=== PATIENT | male | born 1960 | race African-American/Black ===

== ENCOUNTER 2017-03-26 11:48 | Inpatient (IN) | payer SELFPAY ==
[~2017-03-26] VITALS: Ht 180.3 cm; Wt 104.3 kg
[~2017-03-26 11:48] MED LIST: ENOXAPARIN 30MG/0.3ML SYR SUBCUT SCH
[2017-03-26] MEDS ORDERED: ATEN-42 PO (11:57)
[2017-03-26] MEDS ORDERED: METF500T4 PO (11:57)
[2017-03-26] MEDS ORDERED: LISI2.5T47 PO (11:57)
[2017-03-26 13:24] LABS: PROTHROMBIN TIME 10.7 sec (9.4-11.6)
[2017-03-26 13:26] LABS: BASOPHILS % 0.8 % (0.0-2.0); EOSINOPHILS % 1.1 % (0.0-5.0); HEMATOCRIT. 34.7 % (42.0-52.0); HEMOGLOBIN. 11.2 g/dL (14.0-18.0); MEAN CORPUSCULAR HEMOGLOBIN 26.9 pg (28.0-32.0); MEAN CORPUSCULAR VOLUME 83.6 fL (80.0-94.0); MEAN PLATELET VOLUME 7.6 fl (7.4-10.4); NEUTROPHILS % 63.1 % (40.0-76.0); PLATELET 282 x1000/uL (130-400); RED BLOOD CELL COUNT 4.15 mill/uL (4.7-6.1); RED CELL DISTRIBUTION WIDTH 17.5 % (11.6-14.6)
[2017-03-26 13:33] LABS: CARBON DIOXIDE 22 mEq/L (21-32); CHLORIDE 101 mEq/L (98-107); ETHANOL BLOOD 208 mg/dL; TROPONIN I < 0.02 ng/mL (0.00-0.04)
[2017-03-26 13:51] LABS: *AMPHETAMINES SCREEN URINE NEGATIVE (NEGATIVE); *BARBITURATES SCREEN URINE NEGATIVE (NEGATIVE); *BENZODIAZEPINES SCREEN URINE NEGATIVE (NEGATIVE); *COCAINE SCREEN URINE NEGATIVE (NEGATIVE); CANNABINOID URINE SCREEN PRESUMTIVE POSITIVE (NEGATIVE); METHADONE URINE SCREEN NEGATIVE (NEGATIVE); OPIATES URINE SCREEN NEGATIVE (NEGATIVE); PHENCYCLIDINE URINE SCREEN NEGATIVE (NEGATIVE)
[2017-03-26] MEDS ORDERED: MAGNESIUM/ALUMINUM HYDROXIDE/SIMETHICONE 30ML UDC PO PRN (19:00)
[2017-03-26] MEDS ORDERED: DIPHENHYDRAMINE 50MG/ML VIAL IV PRN (19:00)
[2017-03-26] MEDS ORDERED: DEXTROSE 50% WATER 50ML SYRINGE IV PRN (19:00)
[2017-03-26] MEDS ORDERED: ONDANSETRON HCL 4MG/2ML VIAL IV PRN (19:00)
[2017-03-26] MEDS ORDERED: MAGNESIUM 2 G PREMIX 50 ML IV PRN (19:00)
[2017-03-26] MEDS ORDERED: CLONIDINE 0.1MG TABLET PO PRN (19:00)
[2017-03-26] MEDS ORDERED: POTASSIUM CHLORIDE 20MEQ TABLET SR PO NR (19:15)
[2017-03-26 21:00] VITALS: BP 197/107
[2017-03-26] MEDS: INSULIN LISPRO 100 UNITS/ML SUBCUT SCH (21:00)
[2017-03-26] MEDS: ACETAMINOPHEN 325MG TABLET PO PRN (21:16)
[2017-03-26] MEDS: BLOOD SUGAR DIAGNOSTIC STRIP TEST SCH (21:19)
[2017-03-26] MEDS: SODIUM CHLORIDE 0.9% INJ 3ML FLUSH IVF SCH (21:19)
[2017-03-26] MEDS ORDERED: LISINOPRIL 2.5MG TABLET PO SCH (23:00)
[2017-03-26] MEDS ORDERED: TEMAZEPAM 15MG CAPSULE PO PRN (23:00)
[2017-03-26] MEDS ORDERED: LISINOPRIL 20MG TABLET PO SCH (23:59)
[2017-03-27] VITALS: BP 164/100
[2017-03-27] MEDS: LISINOPRIL 20MG TABLET PO SCH ×3 (00:12→17:43)
[2017-03-27 04:00] VITALS: BP_SYST 144; BP_SYST 169; BP_DIAS 114; BP_DIAS 123; BP_DIAS 98
[2017-03-27] MEDS: ACETAMINOPHEN 325MG TABLET PO PRN (04:52)
[2017-03-27] MEDS: CLONIDINE 0.1MG TABLET PO PRN ×2 (04:53→13:30)
[2017-03-27] MEDS: GABAPENTIN 100MG CAPSULE PO SCH ×3 (06:04→21:24)
[2017-03-27] MEDS: BLOOD SUGAR DIAGNOSTIC STRIP TEST SCH ×4 (06:06→21:26)
[2017-03-27 06:11] LABS: HEMATOCRIT. 37.1 % (42.0-52.0); MEAN CORPUSCULAR HEMOGLOBIN 26.9 pg (28.0-32.0); MEAN CORPUSCULAR VOLUME 83.1 fL (80.0-94.0); MEAN PLATELET VOLUME 7.8 fl (7.4-10.4); PLATELET 261 x1000/uL (130-400); RED BLOOD CELL COUNT 4.47 mill/uL (4.7-6.1); RED CELL DISTRIBUTION WIDTH 17.8 % (11.6-14.6)
[2017-03-27] MEDS: SODIUM CHLORIDE 0.9% INJ 3ML FLUSH IVF SCH ×3 (06:14→23:41)
[2017-03-27 06:29] LABS: CHLORIDE 100 mEq/L (98-107)
[2017-03-27 06:38] LABS: CARBON DIOXIDE 26 mEq/L (21-32); CREATINE KINASE 814 IU/L (39-308); CREATINE KINASE MB FRACTION 4.5 ng/mL (0.5-3.6); HDL CHOLESTEROL 56 mg/dL (40-59); LDL CHOLESTEROL 66 mg/dL (5-100); TROPONIN I < 0.02 ng/mL (0.00-0.04)
[2017-03-27] MEDS: INSULIN LISPRO 100 UNITS/ML SUBCUT SCH ×4 (06:42→22:11)
[2017-03-27] MEDS ORDERED: METFORMIN HCL 500MG TABLET PO SCH (07:15)
[2017-03-27 08:00] VITALS: BP_SYST 147; BP_SYST 154; BP_SYST 163; BP_DIAS 105; BP_DIAS 106; BP_DIAS 107
[2017-03-27] MEDS: METFORMIN HCL 500MG TABLET PO SCH ×2 (08:15→17:43)
[2017-03-27] MEDS: ASPIRIN 81MG EC TABLET PO SCH (08:16)
[2017-03-27] MEDS: ATENOLOL 25MG TABLET PO SCH (08:16)
[2017-03-27] MEDS: LEVETIRACETAM 500MG/5ML CUP PO SCH ×2 (08:16→21:21)
[2017-03-27] MEDS ORDERED: LISINOPRIL 2.5MG TABLET PO SCH (09:00)
[2017-03-27] MEDS: INSULIN DETEMIR UD 100 UNITS/ML SYR SUBCUT SCH (10:08)
[2017-03-27 12:00] VITALS: BP 153/103
[2017-03-27] MEDS ORDERED: HYDRALAZINE 20MG/ML VIAL IV PRN (13:30)
[2017-03-27] MEDS: IBUPROFEN 800MG TABLET PO SCH ×2 (14:03→21:24)
[2017-03-27] MEDS: AMLODIPINE 10MG TABLET PO SCH (14:04)
[2017-03-27 16:00] VITALS: BP 137/99
[2017-03-27 20:00] VITALS: BP_SYST 121; BP_SYST 127; BP_DIAS 77; BP_DIAS 82
[2017-03-27 22:59] LABS: PLATELET ESTIMATE NORMAL
[2017-03-28] VITALS: BP 102/63
[2017-03-28 04:00] VITALS: BP 115/80
[2017-03-28 06:19] LABS: CHLORIDE 101 mEq/L (98-107)
[2017-03-28 06:29] LABS: CARBON DIOXIDE 30 mEq/L (21-32); CREATINE KINASE 499 IU/L (39-308); CREATINE KINASE MB FRACTION 1.9 ng/mL (0.5-3.6); HDL CHOLESTEROL 49 mg/dL (40-59); LDL CHOLESTEROL 64 mg/dL (5-100); TROPONIN I < 0.02 ng/mL (0.00-0.04)
[2017-03-28] MEDS: GABAPENTIN 100MG CAPSULE PO SCH ×3 (06:56→20:24)
[2017-03-28] MEDS: IBUPROFEN 800MG TABLET PO SCH (06:57)
[2017-03-28] MEDS: SODIUM CHLORIDE 0.9% INJ 3ML FLUSH IVF SCH ×3 (06:57→20:32)
[2017-03-28] MEDS: BLOOD SUGAR DIAGNOSTIC STRIP TEST SCH ×4 (06:57→20:31)
[2017-03-28] MEDS: METFORMIN HCL 500MG TABLET PO SCH ×2 (06:57→17:28)
[2017-03-28] MEDS: INSULIN LISPRO 100 UNITS/ML SUBCUT SCH ×4 (07:03→20:28)
[2017-03-28 08:00] VITALS: BP_SYST 139; BP_SYST 152; BP_SYST 158; BP_DIAS 101; BP_DIAS 98; BP_DIAS 99
[2017-03-28] MEDS: ATENOLOL 25MG TABLET PO SCH (08:56)
[2017-03-28] MEDS: ENOXAPARIN 30MG/0.3ML SYR SUBCUT SCH ×2 (08:57→20:25)
[2017-03-28] MEDS: LISINOPRIL 20MG TABLET PO SCH (08:57)
[2017-03-28] MEDS: ASPIRIN 81MG EC TABLET PO SCH (08:57)
[2017-03-28] MEDS: LEVETIRACETAM 500MG/5ML CUP PO SCH (08:57)
[2017-03-28] MEDS: AMLODIPINE 10MG TABLET PO SCH (08:57)
[2017-03-28] MEDS ORDERED: ENOXAPARIN 40MG/0.4ML SYR SUBCUT SCH (09:00)
[2017-03-28] MEDS: INSULIN DETEMIR UD 100 UNITS/ML SYR SUBCUT SCH (09:56)
[2017-03-28 12:00] VITALS: BP 147/92
[2017-03-28] MEDS: CLONIDINE 0.1MG TABLET PO PRN (15:44)
[2017-03-28 16:00] VITALS: BP 174/99
[2017-03-28 16:55] LABS: VITAMIN B12 SERUM 238 pg/mL (211-911)
[2017-03-28 20:00] VITALS: BP 135/83
[2017-03-28] MEDS: LOSARTAN POTASSIUM 50 MG TABLET PO SCH (20:25)
[2017-03-28] MEDS: LEVETIRACETAM 500MG TABLET PO SCH (20:25)
[2017-03-28] MEDS: TRAMADOL 50MG TABLET PO PRN (20:27)
[2017-03-28] MEDS: ACETAMINOPHEN 325MG TABLET PO PRN (22:01)
[2017-03-29] VITALS: BP 142/95
[2017-03-29 04:00] VITALS: BP_SYST 128; BP_SYST 132; BP_SYST 133; BP_DIAS 85; BP_DIAS 92; BP_DIAS 93
[2017-03-29] MEDS: CLONIDINE 0.1MG TABLET PO PRN (04:01)
[2017-03-29] MEDS: GABAPENTIN 100MG CAPSULE PO SCH (06:29)
[2017-03-29] MEDS: METFORMIN HCL 500MG TABLET PO SCH (06:29)
[2017-03-29] MEDS: INSULIN LISPRO 100 UNITS/ML SUBCUT SCH ×2 (06:31→12:28)
[2017-03-29] MEDS: SODIUM CHLORIDE 0.9% INJ 3ML FLUSH IVF SCH (06:31)
[2017-03-29] MEDS: BLOOD SUGAR DIAGNOSTIC STRIP TEST SCH ×2 (06:31→11:40)
[2017-03-29 08:00] VITALS: BP_SYST 123; BP_SYST 129; BP_SYST 144; BP_DIAS 89; BP_DIAS 90; BP_DIAS 95
[2017-03-29] MEDS: ASPIRIN 81MG EC TABLET PO SCH (08:27)
[2017-03-29] MEDS: LEVETIRACETAM 500MG TABLET PO SCH (08:27)
[2017-03-29] MEDS: LOSARTAN POTASSIUM 50 MG TABLET PO SCH (08:27)
[2017-03-29] MEDS: AMLODIPINE 10MG TABLET PO SCH (08:28)
[2017-03-29] MEDS: ATENOLOL 25MG TABLET PO SCH (08:29)
[2017-03-29] MEDS: TRAMADOL 50MG TABLET PO PRN (08:29)
[2017-03-29] MEDS: ENOXAPARIN 30MG/0.3ML SYR SUBCUT SCH (08:30)
[2017-03-29] MEDS: INSULIN DETEMIR UD 100 UNITS/ML SYR SUBCUT SCH (11:36)
[2017-03-29 12:00] VITALS: BP_SYST 128; BP_SYST 136; BP_SYST 148; BP_DIAS 65; BP_DIAS 67; BP_DIAS 88
[2017-03-29 13:18] VITALS: BP 148/55
== END 2017-03-29 14:00 | disposition home or self-care (01) | DRG 48 ==
LOC: ER 13:25 → 5WST 13:51 → EDBEDREQ 13:54 → ENRESERV 19:59 → 5WST 21:13
PROVIDERS: ADMIT Internal Medicine; ATTEND Internal Medicine
DX: G90.8 Other disorders of autonomic nervous system (principal); E46 Unspecified protein-calorie malnutrition; E11.40 Type 2 diabetes mellitus with diabetic neuropathy, unspecified; I11.9 Hypertensive heart disease without heart failure; E78.00 Pure hypercholesterolemia, unspecified; E87.6 Hypokalemia; F17.210 Nicotine dependence, cigarettes, uncomplicated; F32.9 Major depressive disorder, single episode, unspecified; F41.9 Anxiety disorder, unspecified; G40.909 Epilepsy, unspecified, not intractable, without status epilepticus; F10.10 Alcohol abuse, uncomplicated; S70.02XA Contusion of left hip, initial encounter; S40.011A Contusion of right shoulder, initial encounter; I45.10 Unspecified right bundle-branch block; J44.9 Chronic obstructive pulmonary disease, unspecified; Y90.7 Blood alcohol level of 200-239 mg/100 ml; Z60.2 Problems related to living alone; Z83.3 Family history of diabetes mellitus; Z86.73 Personal history of transient ischemic attack (TIA), and cerebral infarction without residual deficits; Z79.899 Other long term (current) drug therapy; Z88.8 Allergy status to other drugs, medicaments and biological substances; Z80.9 Family history of malignant neoplasm, unspecified; W18.39XA Other fall on same level, initial encounter; Y93.89 Activity, other specified; Y92.511 Restaurant or cafe as the place of occurrence of the external cause; Y99.8 Other external cause status; Z68.32 Body mass index [BMI] 32.0-32.9, adult
CPT/HCPCS: 36415; 70450; 71010; 73030; 73502; 80053; 80061; 80305; 82542; 82550; 82553; 82607; 82962; 83036; 83735; 83880; 84443; 84484; 85025; 85379; 85610; 93005; 93306; 93970; 97162; 99285; G0482; J1650; J1815